=== PATIENT | male | born 1980 | race Caucasian/White ===

== ENCOUNTER → 2020-02-18 | Outpatient (CLI) | payer BC | END | disposition home or self-care (01) | LOC: LAB 12:39 | PROVIDERS: ATTEND Surgery | DX: Z01.818 Encounter for other preprocedural examination (principal); Z11.59 Encounter for screening for other viral diseases; L05.91 Pilonidal cyst without abscess | CPT/HCPCS: U0003-CS ==

== ENCOUNTER 2020-02-21 09:13 | Day surgery (SDC) | payer BC ==
[~2020-02-21] VITALS: Ht 182.9 cm; Wt 121.5 kg
[~2020-02-21 09:13] MED LIST: ACETAMINOPHEN 500 MG TABLET PO ONE; HYDROmorphone 2 MG/ML VIAL IV PRN; IV RINGERS,LACTATED 1000ML 1,000 ML IV SCH; LIDOCAINE 1% PF 2 ML VIAL. ID PRN; MORPHINE SULFATE 2 MG/ML VIAL. IV PRN; ONDANSETRON PF 4 MG/2 ML VIAL. IV PRN; PROCHLORPERAZINE 10 MG/2 ML VIAL. IV PRN; ceFAZolin SODIUM 3 GM in IV DEXTROSE 5% 100ML 100 ML IV PRN; fentaNYL PF VIAL 100 MCG/2 ML VIAL IV PRN
[2020-02-21] MEDS ORDERED: LIDOCAINE 2% PF 5 ML VIAL. ONE (10:38)
[2020-02-21] MEDS ORDERED: PROPOFOL 10 MG/ML (20ML) VIAL. IV ONE ×2 (10:38→12:12)
[2020-02-21] MEDS ORDERED: DEXAMETHASONE SOD PHOS 4 MG/ML VIAL ONE (10:38)
[2020-02-21] MEDS ORDERED: MIDAZOLAM HCL/PF 2 MG/2 ML VIAL. ONE (10:39)
[2020-02-21] MEDS ORDERED: fentaNYL PF VIAL 100 MCG/2 ML VIAL ONE ×3 (10:39→12:15)
[2020-02-21] MEDS ORDERED: ROCURONIUM 50 MG/5 ML VIAL. ONE (10:39)
[2020-02-21] MEDS ORDERED: ONDANSETRON PF 4 MG/2 ML VIAL. ONE (10:39)
[2020-02-21] MEDS ORDERED: SUCCINYLCHOLINE 200 MG/10 ML VIAL. ONE (10:45)
[2020-02-21] MEDS ORDERED: BUPIVACAINE-EPI 0.25%-1:200000 MPF 30 ML VIAL. ONE (11:22)
[2020-02-21] MEDS ORDERED: SEVOFLURANE 31 TO 60 MINUTES. IH ONE (12:00)
[2020-02-21] MEDS ORDERED: ePHEDrine PF IN SALINE 50 MG/10 ML SYRINGE. IV ONE (12:00)
--- NOTE | 2020-02-21 12:14 | PDOC4 ---
Operative Note Operative Note Date: February 21, 2020 at 1211 Preoperative diagnosis: Pilonidal cyst Postoperative diagnosis: Same Procedure: Pilonidal cystectomy Surgeon: Roel Specimen: Pilonidal cyst Dictation: Patient is 39-year-old male has had previously pilonidal cystectomy several years ago now has a another area just above that incision that is being painful occasionally draining. The procedure of pilonidal cystectomy was explained to the patient detail was benefits were also discussed including bleeding infection alternatives to the procedure also discussed with the patient who seemed to understand and gave both verbal and written consent to have the procedure performed. Patient was taken to the operating room placed in the supine position general anesthesia was initiated once patient was sleeping intubated was then repositioned in the prone positioning his buttocks was prepped and draped usual sterile fashion using Betadine scrub and solution. An area around the pilonidal cyst was injected quarter percent Marcaine with epinephrine elliptical incision was made with a 10 blade scalpel is carried down through the subcutaneous tissues using electrocautery to fight hemostasis down to the fascia. Once hemostasis was controlled electrocautery the wound was then closed in several layers the deepest layer running 0 Vicryl suture subcutaneous layer 3-0 Vicryl suture and the skin was reapproximated with 3-0 nylon horizontal mattress sutures. Wound was dressed with 4 x 4's ABD. Patient was repositioned in in the supine positioning was awakened and extubated operating room taken to recovery in stable condition all sponge instrument needle counts listed as correct estimated blood loss 10 mL MITCH GUTIERREZ MD Feb 21, 2020 12:14
--- NOTE | 2020-02-21 12:15 | DISCH ---
DISCHARGE INSTRUCTIONS Condition on Discharge Condition on Discharge: Stable Activity After Discharge Activity Instructions for Disc: Avoid exertion Diet after Discharge Diet after Discharge: Regular Wound Incision Care Other wound/incision instructi: May shower in 24 hours Contacting the after DC Call your doctor for: If your condition worsens Follow-Up Follow up with: Dr. Gutierrez in 2 weeks MITCH GUTIERREZ MD Feb 21, 2020 12:15
[2020-02-21] MEDS ORDERED: oxyCODONE/APAP 5/325 1 TAB TABLET ONE (12:45)
[2020-02-21] MEDS: fentaNYL PF VIAL 100 MCG/2 ML VIAL IV PRN ×2 (12:57→13:07)
[2020-02-21] MEDS ORDERED: OXYC1TAB15 PO (12:59)
[2020-02-21 13:00] VITALS: BP 144/78
[2020-02-21] MEDS ORDERED: oxyCODONE/APAP 5/325 1 TAB TABLET PO ONE ×2 (13:00)
--- NOTE | 2020-02-24 19:07 | PATHOLOGY ---
[facility] Accession Number: [id number] . 01 Material submitted: . buttock - PILONIDAL CYST . 01 Clinical history: . Pilonidal cyst . 02 Diagnosis: Skin and subcutaneous tissue, pilonidal cystectomy: - Pilonidal sinus showing acute and chronic inflammation, with surrounding fibrosis and chronic inflammation. (JPM:[employer]; 02/24/2020) [facility] 02/24/2020 1545 Local . 02 Electronically signed: . Jose Lorenzo MD, Pathologist NPI- [id number] . 01 Gross description: . The specimen is received in formalin, labeled "Adarsh Theurer, pilonidal cyst". Received is an ellipse of pale sanchez skin with attached underlying fibroadipose tissue measuring 3.8 x 1.8 x 4.2 cm in greatest dimensions. Sectioning reveals a linear sinus tract measuring 2.2 cm in length by 0.2 cm in diameter. The remainder of the specimen displays pale sanchze to bright yellow cut surfaces. The specimen is submitted representatively in cassette A1. ([facility]; 02/21/2020) QA/[facility] 02/21/2020 1655 Local . 02 Pathologist provided ICD-10: L72.11 . 02 CPT . 629993 Specimen Comment: A courtesy copy of this report has been sent to [phone], [phone] Specimen Comment: [phone] Specimen Comment: Report sent to / DR BAEZ Performed at: 01 [facility] [address], [place], [place] [id number] MD Kishor Bynum MD Phone: [phone] Performed at: 02 [facility] [address] [place], [place] [id number] MD Jose Lorenzo MD Phone: [phone]
== END 2020-02-21 13:21 | disposition home or self-care (01) ==
LOC: SURG 09:13 → EDUNIT# 10:30 → SURG 13:21
PROVIDERS: ATTEND Surgery
DX: L05.91 Pilonidal cyst without abscess (principal); I10 Essential (primary) hypertension; F17.210 Nicotine dependence, cigarettes, uncomplicated; E66.9 Obesity, unspecified; J30.2 Other seasonal allergic rhinitis; Z85.47 Personal history of malignant neoplasm of testis; Z68.36 Body mass index [BMI] 36.0-36.9, adult; Z79.899 Other long term (current) drug therapy; Z82.49 Family history of ischemic heart disease and other diseases of the circulatory system; Z98.890 Other specified postprocedural states; Z82.3 Family history of stroke
CPT/HCPCS: 11771; 88304; A7015; J0330; J1100; J2250; J2405; J2704; J3010; J3490; A4461